=== PATIENT | female | born 1985 | race Hispanic/Latino ===

== ENCOUNTER 2017-10-10 16:57 | Emergency (ER) | payer SELFPAY | END 2017-10-10 17:51 | disposition home or self-care (01) | LOC: EDH 16:57 | DX: H61.22 Impacted cerumen, left ear (principal); R20.2 Paresthesia of skin | CPT/HCPCS: 99281 ==

== ENCOUNTER 2018-09-20 20:37 | Emergency (ER) | payer OTHER | END 2018-09-20 21:06 | disposition home or self-care (01) | LOC: EDH 20:37 | DX: H10.9 Unspecified conjunctivitis (principal); Z88.0 Allergy status to penicillin ==

== ENCOUNTER 2019-01-17 13:13 | Emergency (ER) | payer SELFPAY | END 2019-01-17 14:26 | disposition home or self-care (01) | LOC: EDH 13:13 | DX: G56.01 Carpal tunnel syndrome, right upper limb (principal); Z88.0 Allergy status to penicillin ==

== ENCOUNTER 2021-05-09 23:48 | Emergency (ER) | payer MEDICAID ==
[~2021-05-09] VITALS: Ht 154.9 cm; Wt 88.5 kg
[2021-05-10] MEDS ORDERED: ORPHENADRINE CITRATE 30 MG/ML ML IM ONE (01:00)
[2021-05-10] MEDS ORDERED: KETOROLAC 60 MG VIAL (30MG/ML) IM ONE (01:00)
[2021-05-10] MEDS ORDERED: CYCL10TA7 PO (01:06)
[2021-05-10] MEDS ORDERED: MELO7.5T12 PO (01:06)
[2021-05-10 01:17] VITALS: BP 121/87
== END 2021-05-10 01:35 | disposition home or self-care (01) ==
LOC: EDH 23:48
DX: R07.89 Other chest pain (principal); M62.838 Other muscle spasm; Z79.1 Long term (current) use of non-steroidal anti-inflammatories (NSAID); Z88.0 Allergy status to penicillin
CPT/HCPCS: 81025; 93005; 96372 ×2; 99284; J1885; J2360